=== PATIENT | female | born 1995 | race Caucasian/White ===

== ENCOUNTER 2018-08-22 20:43 | Emergency (ER) | payer SELFPAY ==
[2018-08-22] MEDS: IBUPROFEN 600 MG TAB PO (21:35)
== END 2018-08-22 22:35 | disposition home or self-care (01) ==
LOC: FTE 20:43
DX: S63.642A Sprain of metacarpophalangeal joint of left thumb, initial encounter (principal); F17.210 Nicotine dependence, cigarettes, uncomplicated; W22.01XA Walked into wall, initial encounter; Y92.512 Supermarket, store or market as the place of occurrence of the external cause
CPT/HCPCS: 73130; 73130-LT; 99283-25